=== PATIENT | female | born 1990 | race Caucasian/White ===

== ENCOUNTER 2016-12-25 23:32 | Emergency (ER) | payer MEDICAID, OTHER ==
[2016-12-25 23:32] VITALS: BMI 22.7
[2016-12-25 23:49] VITALS: BP 104/72; PULSE 60; RESP 20; TEMP 97.8; O2SAT 100
--- NOTE | 2016-12-26 00:24 | C.PDOC ---
History Of Present Illness 26 y/o female presents to ED with complaints of fever, cough sore throat. Patient denies N/V/D, shortness of breath, headache or any other complaints. Time Seen by Provider: 12/25/16 23:51 Chief Complaint (Nursing): ENT Problem History Per: Patient History/Exam Limitations: no limitations Onset/Duration Of Symptoms: Days Current Symptoms Are (Timing): Still Present Location Of Pain: None Associated Symptoms: Fever, Sore Throat, Cough. denies: Chills, Neck Pain, Nausea, Vomiting, Diarrhea Severity: Mild Recent travel outside of the [place]: No Additional History Per: Patient Past Medical History Reviewed: Historical Data, Nursing Documentation, Vital Signs Vital Signs: Last Vital Signs Temp 97.8 F 12/25/16 23:46 Pulse 60 12/25/16 23:46 Resp 20 12/26/16 00:28 BP 104/72 12/25/16 23:46 Pulse Ox 100 12/26/16 05:39 - [facility] Procedures INJECT/INFUSE ELECTROLYT (06/12/13) Family History: States: Unknown Family Hx - Social History Hx Tobacco Use: No Hx Alcohol Use: No Hx Substance Use: No - Immunization History Hx Tetanus Toxoid Vaccination: No Hx Influenza Vaccination: No Hx Pneumococcal Vaccination: No Review Of Systems Except As Marked, All Systems Reviewed And Found Negative. Constitutional: Positive for: Fever. Negative for: Chills ENT: Negative for: Nose Congestion Respiratory: Positive for: Cough. Negative for: Shortness of Breath Gastrointestinal: Negative for: Nausea, Vomiting, Diarrhea Genitourinary: Negative for: Dysuria Physical Exam - Physical Exam Appears: Non-toxic, No Acute Distress Skin: Normal Color, Warm, No Rash Head: Atraumatic, Normacephalic Eye(s): bilateral: Normal Inspection, PERRL, EOMI Ear(s): Bilateral: Normal Nose: Normal Oral Mucosa: Moist Throat: Normal, No Erythema, No Exudate Neck: Normal ROM, Supple Chest: Symmetrical, No Tenderness Cardiovascular: Rhythm Regular, No Friction Rub, No Murmur Respiratory: Normal Breath Sounds, No Rales, No Rhonchi, No Wheezing Gastrointestinal/Abdominal: Normal Exam, No Tenderness, No Guarding, No Rebound Extremity: Normal ROM Neurological/Psych: Oriented x3, Normal Speech, Normal Cognition, Normal Motor, Normal Sensation Gait: Steady ED Course And Treatment O2 Sat by Pulse Oximetry: 100 (RA) Pulse Ox Interpretation: Normal Medical Decision Making Medical Decision Making: Impression: 26 y/o female with fever, cough and sore throat. Patient denies N/V/ D, SOB, headache. Physical exam was normal no rhales, rhonci, wheezing in lungs , no erythema in throat. Plan: Tessalon, Motrin & Prednisone Progress: Patient was given Tessalon, Motrin and Prednisone and feels comfortable to return home. Patient will be discharged and instructed for follow up with PMD in 1-2 days. Disposition - Disposition Referrals: Kacie Rodas MD [Staff Provider] - Disposition: HOME/ ROUTINE Disposition Time: 00:22 Condition: GOOD Additional Instructions: Follow up with the medical doctor within 1-2 days without fail. Return if worsened. s Prescriptions: Ibuprofen [Motrin] 600 mg PO TID #21 tab Benzonatate [Tessalon Perles] 200 mg PO TID PRN #21 sgl PRN Reason: Cough predniSONE [Prednisone] 20 mg PO BID #10 tab Instructions: Upper Respiratory Infection (ED) - Clinical Impression Clinical Impression: Upper respiratory infection - PA / CAN STACKER / Resident Statement MD/DO has examined the patient and agrees with the treatment plan. - Scribe Statement Rico Stovall All medical record entries made by the Scribe were at my direction and personally dictated by me. I have reviewed the chart and agree that the record accurately reflects my personal performance of the history, physical exam, medical decision making, and the department course for this patient. I have also personally directed, reviewed, and agree with the discharge instructions and disposition.
== END 2016-12-26 00:28 | disposition home or self-care (01) ==
LOC: C.ER 23:32
DX: J06.9 Acute upper respiratory infection, unspecified (principal)

== ENCOUNTER 2017-01-24 22:22 | Emergency (ER) | payer MEDICAID, OTHER ==
[2017-01-24 22:22] VITALS: BMI 22.7
[2017-01-24 22:32] VITALS: RESP 18
[2017-01-24 22:53] LABS: RBC URINE 1 /hpf (0-3); URINE BACTERIA OCC (<OCC); URINE BILIRUBIN NEGATIVE (NEGATIVE); URINE BLOOD NEGATIVE (NEGATIVE); URINE COLOR Straw (YELLOW); URINE GLUCOSE (UA) NORMAL (Normal); URINE KETONE NEGATIVE (NEGATIVE); URINE LEUKOCYTE ESTERASE TRACE Leu/uL (Negative); URINE PROTEIN NEGATIVE (NEGATIVE); URINE UROBILINOGEN NORMAL mg/dL (0.2-1.0); WBC URINE 4 /hpf (0-5)
--- NOTE | 2017-01-24 23:34 | C.PDOC ---
History Of Present Illness 26 Y/O FEMALE C/O PERSISTENT BILATERAL LOWER QUADRANT ABDOMINAL PAIN FOR 2 WEEKS. SEEN BY PMD FOR SAME, F/U TOMORROW FOR BLOOD TEST RESULTS. PT NOTES LMP WAS 12/24/16. DENIES FEVER, CHILLS, NAUSEA, VOMITING, DIARRHEA, URINARY SX, VAGINAL BLEEDING. Time Seen by Provider: 01/24/17 23:19 Chief Complaint (Nursing): Abdominal Pain History Per: Patient History/Exam Limitations: no limitations Onset/Duration Of Symptoms: Days, Persistent Current Symptoms Are (Timing): Still Present Location Of Pain/Discomfort: RLQ, LLQ Radiation Of Pain To:: None Quality Of Discomfort: "Pain" Associated Symptoms: denies: Fever, Chills, Nausea, Vomiting, Diarrhea, Constipation, Urinary Symptoms Recent travel outside of the [place]: No Abnormal Vaginal Bleeding: No Past Medical History Reviewed: Historical Data, Nursing Documentation, Vital Signs Vital Signs: Last Vital Signs Temp 98 F 01/24/17 22:27 Pulse 76 01/24/17 22:27 Resp 18 01/24/17 22:27 BP 115/80 01/24/17 22:27 Pulse Ox 100 01/24/17 23:55 - Medical History PMH: No Chronic Diseases - [employer] Procedures INJECT/INFUSE ELECTROLYT (06/12/13) Family History: States: Unknown Family Hx - Social History Hx Tobacco Use: No Hx Alcohol Use: No Hx Substance Use: No - Immunization History Hx Tetanus Toxoid Vaccination: No Hx Influenza Vaccination: No Hx Pneumococcal Vaccination: No Review Of Systems Except As Marked, All Systems Reviewed And Found Negative. Constitutional: Negative for: Fever, Chills Respiratory: Negative for: Cough, Shortness of Breath Gastrointestinal: Positive for: Abdominal Pain. Negative for: Nausea, Vomiting , Diarrhea Genitourinary: Negative for: Vaginal Discharge, Vaginal Bleeding, Pelvic Pain Skin: Negative for: Rash Physical Exam - Physical Exam Appears: Non-toxic, No Acute Distress Skin: Warm, Dry Head: Atraumatic, Normacephalic Oral Mucosa: Moist Chest: Symmetrical Cardiovascular: Rhythm Regular Respiratory: Normal Breath Sounds, No Rales, No Rhonchi, No Wheezing Gastrointestinal/Abdominal: Soft, Tenderness (MILD, LLQ ), No Distention, No Guarding, No Rebound Back: Normal Inspection, No CVA Tenderness Extremity: Normal ROM, Capillary Refill (< 2 SEC. ) Neurological/Psych: Oriented x3, Normal Speech, Normal Cognition ED Course And Treatment O2 Sat by Pulse Oximetry: 100 (RA) Pulse Ox Interpretation: Normal - Other Rad ABDOMEN FLAT PLATE X-Ray: Viewed By Me, Read By Radiologist Interpretation: NEGATIVE FOR ACUTE ABNORMALITY Disposition Counseled Patient/Family Regarding: Studies Performed, Diagnosis, Need For Followup - Disposition Referrals: YOUR,PMD [Other] Disposition: HOME/ ROUTINE Disposition Time: 23:53 Condition: GOOD Additional Instructions: SEE YOUR PMD SCHEDULED Instructions: Abdominal Pain (ED), Amenorrhea (GEN) - Clinical Impression Clinical Impression: Abdominal pain, Menstrual cycle problem - Scribe Statement The provider has reviewed the documentation as recorded by the Priscillaibangelia Bennett Provider Scribe Attestation: All medical record entries made by the Scribe were at my direction and personally dictated by me. I have reviewed the chart and agree that the record accurately reflects my personal performance of the history, physical exam, medical decision making, and the department course for this patient. I have also personally directed, reviewed, and agree with the discharge instructions and disposition.
[2017-01-25 00:01] VITALS: BP 103/70; PULSE 73; TEMP 97.7; O2SAT 98
--- NOTE | 2017-01-25 08:44 | RAD ---
HISTORY: llq pain COMPARISON: No prior. FINDINGS: BOWEL: Normal. No obstruction. No free air. BONES: Normal. OTHER FINDINGS: None. IMPRESSION: No active disease.
== END 2017-01-25 00:01 | disposition home or self-care (01) ==
LOC: C.ER 22:22
DX: R10.32 Left lower quadrant pain (principal); N92.6 Irregular menstruation, unspecified

== ENCOUNTER 2017-08-29 23:17 | Emergency (ER) | payer MEDICAID, OTHER ==
[2017-08-29 23:17] VITALS: BMI 22.7
[2017-08-29 23:29] VITALS: RESP 20; O2SAT 100
[2017-08-29] MEDS ORDERED: Lactated Ringer's 1,000 ML IV ONE (23:50)
--- NOTE | 2017-08-29 23:50 | C.PDOC ---
History Of Present Illness Pt presents with worsening suprapubic discomfort over the last 6 days. No f/c/n/ v or dysuria. LMP was aug 02. tolerating po Time Seen by Provider: 08/29/17 23:49 Chief Complaint (Nursing): Abdominal Pain History Per: Patient History/Exam Limitations: no limitations Onset/Duration Of Symptoms: Days (6) Current Symptoms Are (Timing): Still Present Context: Other Severity: Moderate Pain Scale Rating Of: 4 Location Of Pain/Discomfort: Suprapubic Radiation Of Pain To:: None Quality Of Discomfort: Dull, Cramping Associated Symptoms: denies: Fever, Chills, Nausea, Vomiting Exacerbating Factors: denies: Cough Alleviating Factors: None Last Bowel Movement: Today Recent travel outside of the [place]: No Additional History Per: Patient Past Medical History Reviewed: Historical Data, Nursing Documentation, Vital Signs Vital Signs: Last Vital Signs Temp 98.7 F 08/30/17 02:19 Pulse 80 08/30/17 02:19 Resp 20 08/30/17 02:19 BP 103/70 08/30/17 02:19 Pulse Ox 100 08/30/17 02:19 - Medical History PMH: Denies: Depression - [employer] Procedures INJECT/INFUSE ELECTROLYT (06/12/13) Family History: States: No Known Family Hx - Social History Hx Tobacco Use: No Hx Alcohol Use: No Hx Substance Use: No - Immunization History Hx Tetanus Toxoid Vaccination: No Hx Influenza Vaccination: No Hx Pneumococcal Vaccination: No Review Of Systems Constitutional: Negative for: Fever, Chills ENT: Negative for: Throat Pain Cardiovascular: Negative for: Chest Pain Respiratory: Negative for: Shortness of Breath Gastrointestinal: Positive for: Abdominal Pain (suprapubic). Negative for: Nausea, Vomiting Genitourinary: Negative for: Dysuria, Incontinence Musculoskeletal: Negative for: Back Pain Skin: Negative for: Rash Neurological: Negative for: Weakness Psych: Negative for: Anxiety Physical Exam - Physical Exam Appears: Non-toxic, No Acute Distress Skin: Warm, Dry Head: Normacephalic Eye(s): bilateral: Normal Inspection Oral Mucosa: Moist Neck: Supple Chest: Symmetrical Cardiovascular: Rhythm Regular Respiratory: No Rales, No Rhonchi, No Wheezing Gastrointestinal/Abdominal: Soft, Tenderness (suprapubic), No Distention, No Guarding, No Rebound Back: No CVA Tenderness Extremity: Normal ROM Extremity: Bilateral: Atraumatic Pulses: Left Dorsalis Pedis: Normal, Right Dorsalis Pedis: Normal Neurological/Psych: Oriented x3, Normal Speech, Normal Cognition Gait: Steady ED Course And Treatment - Laboratory Results Result Diagrams: 08/30/17 00:02 08/30/17 00:02 O2 Sat by Pulse Oximetry: 100 Pulse Ox Interpretation: Normal Reevaluation Time: 03:42 Reassessment Condition: Improved Disposition Counseled Patient/Family Regarding: Studies Performed, Diagnosis, Need For Followup - Disposition Referrals: Kacie Rodas MD [Staff Provider] - Disposition: HOME/ ROUTINE Disposition Time: 23:50 Condition: FAIR Additional Instructions: Please follow up with your cuff setter overlock doctor Instructions: (ED), Abdominal Pain in (ED) Forms: [facility] (Ukrainian) - Clinical Impression Clinical Impression:
[2017-08-30] MEDS ORDERED: Lactated Ringer's 1,000 ML ONE
[2017-08-30 00:14] LABS: BASO % 0.7 % (0.0-2.0); EOS # 0.1 K/uL (0.0-0.7); HEMATOCRIT 33.8 % (34.0-47.0); LYMPH # 1.5 K/uL (1.0-4.3); LYMPH % 41.5 % (20.0-40.0); MEAN CELL VOLUME 88.2 fL (81.0-99.0); MEAN CORPUSCULAR HEMOGLOBIN 30.2 pg (27.0-31.0); MEAN CORPUSCULAR HGB CONC 34.3 g/dL (33.0-37.0); MEAN PLATELET VOLUME 10.1 fL (7.2-11.7); MONO # 0.4 K/uL (0.0-0.8); MONO % 11.9 % (0.0-10.0); RED CELL DISTRIBUTION WIDTH 13.8 % (11.5-14.5); WHITE BLOOD COUNT 3.7 K/uL (4.8-10.8)
[2017-08-30 00:25] LABS: ALB/GLOB RATIO 1.3 (1.0-2.1); ALKALINE PHOSPHATASE 38 U/L (38-126); ALT/SGPT 36 U/L (9-52); AST/SGOT 19 U/L (14-36); BILIRUBIN,TOTAL 0.5 mg/dL (0.2-1.3); BLOOD UREA NITROGEN 13 mg/dL (7-17); CALCIUM 7.8 mg/dl (8.6-10.4); CARBON DIOXIDE 27 mmol/L (22-30); CHLORIDE 101 mmol/L (98-107); GFR AFRICAN-AMERICAN > 60; GLUCOSE,RANDOM 91 mg/dL (65-105); POTASSIUM 3.7 mmol/L (3.6-5.2); SODIUM 134 mmol/L (132-148); TOTAL PROTEIN 6.8 g/dL (6.3-8.3)
[2017-08-30 00:27] LABS: URINE BACTERIA RARE (<OCC); URINE BILIRUBIN NEGATIVE (NEGATIVE); URINE BLOOD NEGATIVE (NEGATIVE); URINE COLOR Straw (YELLOW); URINE GLUCOSE (UA) NORMAL (Normal); URINE KETONE NEGATIVE (NEGATIVE); URINE LEUKOCYTE ESTERASE 2+ Leu/uL (Negative); URINE PROTEIN NEGATIVE (NEGATIVE); URINE UROBILINOGEN NORMAL mg/dL (0.2-1.0); WBC URINE 2 /hpf (0-5)
[2017-08-30 02:21] VITALS: BP 103/70; PULSE 80; TEMP 98.7
== END 2017-08-30 03:55 | disposition home or self-care (01) ==
LOC: C.ER 23:17
DX: O26.891 Other specified pregnancy related conditions, first trimester (principal); Z3A.00 Weeks of gestation of pregnancy not specified
CPT/HCPCS: 80053; 81001; 83690; 84702; 84703; 85025; 96361; 96374; 99283; J7120

== ENCOUNTER 2017-10-26 22:49 | Emergency (ER) | payer OTHER ==
[2017-10-26 22:49] VITALS: BMI 22.7
--- NOTE | 2017-10-26 23:45 | C.PDOC ---
Time Seen by Provider: 10/26/17 22:57 Chief Complaint (Nursing): Flu-like Symptoms Past Medical History Vital Signs: Last Vital Signs Temp 98.8 F 10/26/17 22:57 Pulse 76 10/26/17 22:57 Resp 20 10/26/17 22:57 BP 120/81 10/26/17 22:57 Pulse Ox 98 10/26/17 22:57 - Medical History PMH: Denies: Depression - [facility] Procedures INJECT/INFUSE ELECTROLYT (06/12/13) Family History: States: Unknown Family Hx - Social History Hx Tobacco Use: No Hx Alcohol Use: No Hx Substance Use: No - Immunization History Hx Tetanus Toxoid Vaccination: No Hx Influenza Vaccination: No Hx Pneumococcal Vaccination: No ED Course And Treatment O2 Sat by Pulse Oximetry: 98 Disposition - Disposition
--- NOTE | 2017-10-26 23:55 | C.PDOC ---
History Of Present Illness 27 year old female presents to the ED for evaluation of generalized body aches, sore throat, and dry cough which began yesterday. Patient has had contact with her son, who presens to the ED with similar complaints. Otherwise, patient denies headache, dizziness, chest pain, shortness of breath, drooling, lethargy , abdominal pain, nausea, vomiting, diarrhea. Ambulate to ED for evaluation, not in any apparent distress. Time Seen by Provider: 10/26/17 22:57 Chief Complaint (Nursing): Flu-like Symptoms History Per: Patient History/Exam Limitations: no limitations Onset/Duration Of Symptoms: Hrs Current Symptoms Are (Timing): Still Present Location Of Pain: Diffuse Myalgias Sick Contacts (Context): Family Member(s) (son ) Associated Symptoms: Sore Throat, Cough. denies: Sputum, Nausea, Vomiting, Diarrhea Additional History Per: Patient Past Medical History Reviewed: Historical Data, Nursing Documentation, Vital Signs Vital Signs: Last Vital Signs Temp 97.7 F 10/27/17 00:19 Pulse 68 10/27/17 00:19 Resp 17 10/27/17 00:19 BP 114/77 10/27/17 00:19 Pulse Ox 98 10/27/17 00:29 - Medical History PMH: Denies: Depression Surgical History: No Surg Hx - [facility] Procedures INJECT/INFUSE ELECTROLYT (06/12/13) Family History: States: Unknown Family Hx - Social History Hx Tobacco Use: No Hx Alcohol Use: No Hx Substance Use: No - Immunization History Hx Tetanus Toxoid Vaccination: No Hx Influenza Vaccination: No Hx Pneumococcal Vaccination: No Review Of Systems ENT: Positive for: Throat Pain. Negative for: Ear Pain, Ear Discharge, Nose Discharge, Nose Congestion Cardiovascular: Negative for: Chest Pain Respiratory: Positive for: Cough. Negative for: Shortness of Breath, Sputum Gastrointestinal: Negative for: Nausea, Vomiting, Abdominal Pain, Diarrhea Musculoskeletal: Positive for: Other (generalized body aches ) Skin: Negative for: Rash Neurological: Negative for: Altered Mental Status, Headache, Dizziness Physical Exam - Physical Exam Appears: Well, Non-toxic, No Acute Distress Skin: Normal Color, Warm, Dry, No Rash Head: Normacephalic Eye(s): bilateral: PERRL Ear(s): Bilateral: Normal Nose: No Flaring, Discharge (SCANT CLEAR B/L) Oral Mucosa: Moist, No Drooling Tongue: Normal Appearing Lips: Normal Appearing Throat: No Erythema, No Drooling Neck: Trachea Midline, Supple, Other ((-) meningeal sign) Cardiovascular: Rhythm Regular, No Murmur Respiratory: No Decreased Breath Sounds, No Accessory Muscle Use, No Stridor, No Wheezing Gastrointestinal/Abdominal: No Soft, No Tenderness, No Distention, No Guarding Back: No CVA Tenderness Extremity: Normal ROM, No Deformity, No Swelling Neurological/Psych: Oriented x3, Normal Speech ED Course And Treatment O2 Sat by Pulse Oximetry: 98 (on RA ) Pulse Ox Interpretation: Normal Progress Note: Tylenol PO and Tamiflu PO administered. On re-evaluation, pt is afebrile, hemodynamicaly stable. Non-toxic. Tolerate Po well in ED. PulsEOx 98 % RA. ENT: brigid cute findings. neck: supple, (-) meningeal sign. Lungs: CTA B/ L, BS equal B/L. Abd: benign, (-) guarding, (-) rebound. Neurologicaly intact. Pt has clinical findings c/w Influenza-like illness. Pt advised. ref. to f/u with PMD In 2-3 days for re-eavl. return to ED if any worsening or new changes. Disposition Counseled Patient/Family Regarding: Diagnosis, Need For Followup, Rx Given - Disposition Referrals: Kacie Rodas MD [Staff Provider] - Disposition: HOME/ ROUTINE Disposition Time: 00:14 Condition: STABLE Additional Instructions: ENCOURAGE FLUIDS TAKE MEDICATION PRESCRIBED FOLLOW UP WITH PMD IN 2-3 DAYS FOR RE-EVALUATION. RETURN TO ED IF ANY WORSENING OR NEW CHANGES. Prescriptions: Oseltamivir Phosphate [Tamiflu] 75 mg PO BID #10 capsule Instructions: Influenza (ED) Forms: [email or web address] ([place] Citizen) - Clinical Impression Clinical Impression: Influenza-like illness - PA / INTERIOR SPECIALIST / Resident Statement MD/DO has reviewed & agrees with the documentation as recorded. - Scribe Statement The provider has reviewed the documentation as recorded by the Scribe (Emely Christian) All medical record entries made by the Scribe were at my direction and personally dictated by me. I have reviewed the chart and agree that the record accurately reflects my personal performance of the history, physical exam, medical decision making, and the department course for this patient. I have also personally directed, reviewed, and agree with the discharge instructions and disposition.
[2017-10-27 00:20] VITALS: BP 114/77; PULSE 68; RESP 17; TEMP 97.7
[2017-10-27 00:23] VITALS: O2SAT 98
== END 2017-10-27 00:44 | disposition home or self-care (01) ==
LOC: C.ER 22:49
DX: J11.1 Influenza due to unidentified influenza virus with other respiratory manifestations (principal)

== ENCOUNTER 2017-10-31 23:14 | Emergency (ER) | payer OTHER ==
[2017-10-31 23:14] VITALS: BMI 22.7
[2017-10-31 23:32] VITALS: RESP 20
--- NOTE | 2017-11-01 00:56 | C.PDOC ---
Time Seen by Provider: 11/01/17 00:14 Chief Complaint (Nursing): Cough, Cold, Congestion History Per: Patient, Family Onset/Duration Of Symptoms: Days (about 1 week) Current Symptoms Are (Timing): Still Present Associated Symptoms: Sore Throat, Cough, Nasal Congestion Severity: Moderate Additional History Per: Prior Records Past Medical History Reviewed: Historical Data, Nursing Documentation, Vital Signs Vital Signs: Last Vital Signs Temp 98.1 F 10/31/17 23:28 Pulse 81 10/31/17 23:28 Resp 20 10/31/17 23:28 BP 106/75 10/31/17 23:28 Pulse Ox 100 10/31/17 23:28 - Medical History PMH: No Chronic Diseases - [employer] Procedures INJECT/INFUSE ELECTROLYT (06/12/13) Family History: States: Unknown Family Hx - Social History Hx Tobacco Use: No Hx Alcohol Use: No Hx Substance Use: No - Immunization History Hx Tetanus Toxoid Vaccination: No Hx Influenza Vaccination: No Hx Pneumococcal Vaccination: No Review Of Systems Except As Marked, All Systems Reviewed And Found Negative. Constitutional: Negative for: Fever Cardiovascular: Positive for: Chest Pain (when coughing) Respiratory: Positive for: Cough. Negative for: Shortness of Breath, Hemoptysis Gastrointestinal: Negative for: Vomiting, Abdominal Pain Musculoskeletal: Negative for: Neck Pain, Leg Pain Skin: Negative for: Rash Neurological: Negative for: Weakness, Numbness Physical Exam - Physical Exam Appears: Non-toxic, No Acute Distress Skin: Normal Color, Warm, Dry, No Rash Head: Atraumatic, Normacephalic Eye(s): bilateral: PERRL, EOMI Ear(s): Bilateral: Normal Oral Mucosa: Moist, No Drooling, No Trismus Throat: Erythema, No Exudate, No Drooling, No Mass Neck: Normal ROM, Supple Chest: Symmetrical Cardiovascular: Rhythm Regular Respiratory: Normal Breath Sounds, No Accessory Muscle Use Gastrointestinal/Abdominal: Soft, No Tenderness Back: No CVA Tenderness Extremity: Normal ROM, No Pedal Edema, No Calf Tenderness Neurological/Psych: Oriented x3, Normal Speech, Normal Motor, Normal Sensation ED Course And Treatment O2 Sat by Pulse Oximetry: 100 Pulse Ox Interpretation: Normal - Radiology CXR: Interpreted by Me, Viewed By Me CXR Interpretation: Yes: No Acute Disease, Heart Size (WNL) Reassessment Condition: Improved Medical Decision Making Medical Decision Making: PERC rule negative Disposition Counseled Patient/Family Regarding: Studies Performed, Diagnosis, Need For Followup, Rx Given - Disposition Referrals: Kacie Rodas MD [Staff Provider] - Disposition: HOME/ ROUTINE Disposition Time: 00:56 Condition: STABLE Additional Instructions: Drink plenty of fluids. Follow up with your doctor within 2 days. Return to the ER if you develop shortness of breath, worsening of symptoms or if you have any other concerns. Prescriptions: Ibuprofen [Motrin Tab] 600 mg PO Q8 PRN #30 tab PRN Reason: Pain, Moderate (4-7) Instructions: Upper Respiratory Infection (ED) Forms: [facility] (Czech), General Discharge Instructions - Clinical Impression Clinical Impression: Upper respiratory infection
[2017-11-01 01:04] VITALS: BP 112/73; PULSE 83; TEMP 97.8; O2SAT 99
--- NOTE | 2017-11-01 09:00 | RAD ---
HISTORY: Cough, pain COMPARISON: No prior. TECHNIQUE: Chest PA and lateral FINDINGS: LUNGS: No active pulmonary disease. PLEURA: No significant pleural effusion identified. No pneumothorax apparent. CARDIOVASCULAR: Normal. OSSEOUS STRUCTURES: No significant abnormalities. VISUALIZED UPPER ABDOMEN: Normal. OTHER FINDINGS: None. IMPRESSION: No active disease.
== END 2017-11-01 01:04 | disposition home or self-care (01) ==
LOC: C.ER 23:14
DX: J06.9 Acute upper respiratory infection, unspecified (principal)

== ENCOUNTER 2017-12-04 18:27 | Emergency (ER) | payer OTHER ==
[2017-12-04 18:28] VITALS: BMI 22.7
[2017-12-04 18:40] VITALS: BP 120/82; PULSE 77; TEMP 97.7; O2SAT 100
--- NOTE | 2017-12-04 19:51 | C.PDOC ---
History Of Present Illness 27 year old female presents to the emergency department with complaints of a cough, runny nose, sore throat, and body aches lasting for the past two days. Patient denies vomiting, diarrhea, chest pain, shortness of breath, back pain, and recent traveling. Time Seen by Provider: 12/04/17 19:12 Chief Complaint (Nursing): Flu-like Symptoms History Per: Patient History/Exam Limitations: no limitations Onset/Duration Of Symptoms: Days (2) Location Of Pain: Throat, Other (body aches) Associated Symptoms: Sore Throat, Cough, Other (body ache) Recent travel outside of the [place]: No Past Medical History Reviewed: Historical Data, Nursing Documentation, Vital Signs Vital Signs: Last Vital Signs Temp 97.7 F 12/04/17 18:38 Pulse 77 12/04/17 18:38 Resp 20 12/04/17 20:18 BP 120/82 12/04/17 18:38 Pulse Ox 100 12/04/17 19:53 - Medical History PMH: No Chronic Diseases Denies: Depression Surgical History: No Surg Hx - [facility] Procedures INJECT/INFUSE ELECTROLYT (06/12/13) Family History: States: No Known Family Hx - Social History Hx Tobacco Use: No Hx Alcohol Use: No Hx Substance Use: No - Immunization History Hx Tetanus Toxoid Vaccination: No Hx Influenza Vaccination: No Hx Pneumococcal Vaccination: No Review Of Systems Except As Marked, All Systems Reviewed And Found Negative. Constitutional: Positive for: Other (body aches) ENT: Positive for: Nose Discharge (rhinorrhea), Throat Pain (sore throat) Cardiovascular: Negative for: Chest Pain Respiratory: Positive for: Cough. Negative for: Shortness of Breath Gastrointestinal: Negative for: Vomiting, Diarrhea Musculoskeletal: Negative for: Back Pain, Other (chest pain) Physical Exam - Physical Exam Appears: Well, Non-toxic Skin: Normal Color Head: Atraumatic, Normacephalic Eye(s): bilateral: Normal Inspection Ear(s): Bilateral: Normal Nose: Normal Oral Mucosa: Moist Tongue: Normal Appearing Throat: Normal Neck: Normal, Supple Cardiovascular: Rhythm Regular Respiratory: Normal Breath Sounds Gastrointestinal/Abdominal: Normal Exam Neurological/Psych: Oriented x3, Normal Speech, Normal Cognition ED Course And Treatment O2 Sat by Pulse Oximetry: 100 (RA) Pulse Ox Interpretation: Normal Progress Note: Patient administered Claritin 10mg PO and Tylenol 650mg PO in the emergency department. Patient is clear for discharge home. Disposition - Disposition Referrals: Kacie Rodas MD [Staff Provider] - Disposition: HOME/ ROUTINE Disposition Time: 19:50 Condition: GOOD Additional Instructions: Follow up with the medical doctor/clinic within 1-2 days. Return if worsened. Prescriptions: Acetaminophen [Tylenol] 325 mg PO Q6 PRN #30 tab PRN Reason: Pain, Mild (1-3) Ibuprofen [Motrin] 600 mg PO TID #21 tab Loratadine [Claritin] 10 mg PO DAILY #10 tab Instructions: Viral Upper Respiratory Infection, Adult (DC) Forms: [employer] (Upper Sorbian) - Clinical Impression Clinical Impression: Upper respiratory infection - PA / CABLE TECHNICIAN / Resident Statement MD/DO has reviewed & agrees with the documentation as recorded. - Scribe Statement The provider has reviewed the documentation as recorded by the Scribe (Yohan Medina) All medical record entries made by the Scribe were at my direction and personally dictated by me. I have reviewed the chart and agree that the record accurately reflects my personal performance of the history, physical exam, medical decision making, and the department course for this patient. I have also personally directed, reviewed, and agree with the discharge instructions and disposition.
[2017-12-04 20:19] VITALS: RESP 20
== END 2017-12-04 20:18 | disposition home or self-care (01) ==
LOC: C.ER 18:27
DX: J06.9 Acute upper respiratory infection, unspecified (principal)

== ENCOUNTER 2017-12-28 18:06 | Emergency (ER) | payer OTHER ==
[2017-12-28 18:06] VITALS: BMI 22.7
[2017-12-28] MEDS ORDERED: Tetanus/Diphtheria Toxoids 0.5 ml Syringe IM ONE ×2 (19:09→19:29)
--- NOTE | 2017-12-28 20:11 | C.PDOC ---
History Of Present Illness 27 year old female presents to the ED c/o sore throat and bilateral ear pain for the past 3 days. Patient is also c/o bilateral hand pain after tripping falling and landing on her hands. Patient denies fever, chills, nausea, vomit, diarrhea, weakness, numbness. Time Seen by Provider: 12/28/17 19:05 Chief Complaint (Nursing): ENT Problem History Per: Patient History/Exam Limitations: no limitations Onset/Duration Of Symptoms: Days Current Symptoms Are (Timing): Still Present Quality: "Pain" Recent travel outside of the [place]: No Additional History Per: Patient Past Medical History Reviewed: Historical Data, Nursing Documentation, Vital Signs Vital Signs: Last Vital Signs Temp 98.1 F 12/28/17 20:53 Pulse 78 12/28/17 20:53 Resp 16 12/28/17 20:53 BP 107/74 12/28/17 20:53 Pulse Ox 98 12/28/17 20:53 - Medical History PMH: No Chronic Diseases Denies: Depression Surgical History: No Surg Hx - [facility] Procedures INJECT/INFUSE ELECTROLYT (06/12/13) Family History: States: Unknown Family Hx - Social History Hx Tobacco Use: No Hx Alcohol Use: No Hx Substance Use: No - Immunization History Hx Tetanus Toxoid Vaccination: No Hx Influenza Vaccination: No Hx Pneumococcal Vaccination: No Review Of Systems Constitutional: Negative for: Fever, Chills ENT: Positive for: Ear Pain, Throat Pain. Negative for: Nose Congestion Cardiovascular: Negative for: Palpitations Respiratory: Negative for: Cough, Shortness of Breath Gastrointestinal: Negative for: Abdominal Pain Musculoskeletal: Positive for: Hand Pain Skin: Negative for: Rash Physical Exam - Physical Exam Appears: Non-toxic, No Acute Distress Skin: Normal Color, Warm, Dry Head: Atraumatic, Normacephalic Eye(s): bilateral: Normal Inspection Ear(s): Bilateral: Normal Nose: No Discharge Oral Mucosa: Moist Throat: Erythema (mild), No Exudate Neck: Normal ROM, Supple Lymphatic: Adenopathy (right side submandibular. Tender and enlarged) Extremity: Normal ROM, Capillary Refill (< 2 seconds), No Swelling, Other (B/L dorsal aspect of hand abrasions, no bleeding) Pulses: Left Radial: Normal, Right Radial: Normal Neurological/Psych: Oriented x3, Normal Motor, Normal Sensation Gait: Steady ED Course And Treatment O2 Sat by Pulse Oximetry: 100 (On RA) Pulse Ox Interpretation: Normal - Other Rad Hand xray b/l X-Ray: Interpreted by Me Interpretation: No fractures, no dislocations Medical Decision Making Medical Decision Making: Impression: sore throat, hand pain Plan: * B/L hands X-Ray * Amoxicillin 500 mg PO * Tetanus Disposition - Disposition Disposition: HOME/ ROUTINE Disposition Time: 20:32 Condition: STABLE Additional Instructions: Follow up with PMD within 1-2 days. Return to ED if feel worse. Prescriptions: Amoxicillin 500 mg PO Q8 #30 tab Ibuprofen [Motrin Tab] 600 mg PO Q8 #30 tab Instructions: Sore Throat in Adults, Skin Abrasions (DC) Forms: [employer] (Luxembourgish) - Clinical Impression Clinical Impression: Abrasion hand, Pharyngitis - PA / BIT SANDER / Resident Statement MD/DO has reviewed & agrees with the documentation as recorded. - Scribe Statement The provider has reviewed the documentation as recorded by the Scribe Alberto Cruz All medical record entries made by the Scribe were at my direction and personally dictated by me. I have reviewed the chart and agree that the record accurately reflects my personal performance of the history, physical exam, medical decision making, and the department course for this patient. I have also personally directed, reviewed, and agree with the discharge instructions and disposition.
[2017-12-28 20:55] VITALS: BP 107/74; PULSE 78; RESP 16; TEMP 98.1
[2017-12-28 21:17] VITALS: O2SAT 100
--- NOTE | 2017-12-29 08:15 | RAD ---
PROCEDURE: Bilateral hand radiographs. HISTORY: fall COMPARISON: None. FINDINGS: BONES: Right Hand: No acute fracture. Left Hand: No acute fracture. JOINTS: Right Hand: Unremarkable. Left Hand: Unremarkable. SOFT TISSUES: Right Hand: Normal. Left Hand: Normal. OTHER FINDINGS: None. IMPRESSION: No demonstrated fracture or dislocation.
== END 2017-12-28 20:55 | disposition home or self-care (01) ==
LOC: C.ER 18:06
DX: J02.9 Acute pharyngitis, unspecified (principal); S60.512A Abrasion of left hand, initial encounter; S60.511A Abrasion of right hand, initial encounter; W01.0XXA Fall on same level from slipping, tripping and stumbling without subsequent striking against object, initial encounter; Y92.9 Unspecified place or not applicable; Z23 Encounter for immunization

== ENCOUNTER 2018-07-24 22:52 | Emergency (ER) | payer OTHER ==
[2018-07-24 22:53] VITALS: BMI 22.7
[2018-07-24 23:19] VITALS: O2SAT 99
--- NOTE | 2018-07-25 00:46 | C.PDOC ---
History Of Present Illness 27 year old female presents to the ED complaining of sore throat and rhinorrhea for 2 days. Reports her "breath and eyes feel hot". Denies any chills, ear pain, cough, n/v/d or any other associated symptoms. +subjective fever. Notes her child is also sick today. pt got flu vaccine 2 weeks ago. Time Seen by Provider: 07/24/18 23:29 Chief Complaint (Nursing): Cough, Cold, Congestion History Per: Patient History/Exam Limitations: no limitations Onset/Duration Of Symptoms: Days (2) Current Symptoms Are (Timing): Still Present Location Of Pain: Throat Associated Symptoms: Fever (subjective), Sore Throat, Sinus Drainage. denies: Chills, Cough, Nasal Congestion, Nausea, Vomiting, Diarrhea Ear Symptoms: Bilateral: None Recent travel outside of the [place]: No Past Medical History Reviewed: Historical Data, Nursing Documentation, Vital Signs Vital Signs: Last Vital Signs Temp 98.2 F 07/24/18 23:10 Pulse 78 07/24/18 23:10 Resp 20 07/24/18 23:10 BP 113/73 07/24/18 23:10 Pulse Ox 99 07/24/18 23:10 - Medical History PMH: No Chronic Diseases Denies: Depression Other Surgeries: Hx of surgery - [facility] Procedures INJECT/INFUSE ELECTROLYT (06/12/13) Family History: States: Unknown Family Hx - Social History Hx Tobacco Use: No Hx Alcohol Use: No Hx Substance Use: No - Immunization History Hx Tetanus Toxoid Vaccination: No Hx Influenza Vaccination: No Hx Pneumococcal Vaccination: No Review Of Systems Constitutional: Positive for: Fever (subjective), Malaise. Negative for: Chills ENT: Positive for: Nose Discharge, Throat Pain. Negative for: Ear Pain, Nose Congestion, Throat Swelling Cardiovascular: Negative for: Chest Pain Respiratory: Negative for: Cough, Shortness of Breath Gastrointestinal: Negative for: Nausea, Vomiting, Abdominal Pain, Diarrhea Genitourinary: Negative for: Dysuria Skin: Negative for: Rash Neurological: Negative for: Weakness, Numbness Physical Exam - Physical Exam Appears: Non-toxic, Other (well appearing, well nourished ) Skin: Warm, Dry, No Rash Head: Atraumatic, Normacephalic Eye(s): bilateral: Normal Inspection Ear(s): Bilateral: Normal Nose: Normal, No Discharge Oral Mucosa: Moist Tongue: Normal Appearing Lips: Normal Appearing Gingiva: Normal Appearing Throat: Erythema (mild), No Exudate Neck: Normal ROM, Supple Lymphatic: No Adenopathy Chest: Symmetrical, No Tenderness Cardiovascular: Rhythm Regular, No Murmur Respiratory: No Rales, No Rhonchi, No Wheezing Extremity: Normal ROM, No Tenderness, No Swelling Neurological/Psych: Oriented x3, Normal Speech, Normal Cognition Gait: Steady ED Course And Treatment O2 Sat by Pulse Oximetry: 99 (RA) Pulse Ox Interpretation: Normal Medical Decision Making Medical Decision Making: Plan - Rapid Strep Test pt with cold symptoms, rapid strep neg, had flu vax 2 weeks ago, d/c home with supportive care. Disposition Counseled Patient/Family Regarding: Studies Performed, Diagnosis, Need For Followup - Disposition Referrals: Kacie Rodas MD [Staff Provider] - Disposition: HOME/ ROUTINE Disposition Time: 00:45 Condition: GOOD Additional Instructions: Tylenol or Motrin for fever or pain. Gargle with warm salty water several times a day. Increased rest, drink increased fluids. Follow up with Dr Rodas in a few days. Instructions: Upper Respiratory Infection (ED) Forms: [facility] (Liberian), General Discharge Instructions - Clinical Impression Clinical Impression: Upper respiratory infection - PA / CORPORATE DIRECTOR / Resident Statement MD/DO has reviewed & agrees with the documentation as recorded. - Scribe Statement The provider has reviewed the documentation as recorded by the Scribe Reshma Ge All medical record entries made by the Scribe were at my direction and personally dictated by me. I have reviewed the chart and agree that the record accurately reflects my personal performance of the history, physical exam, medical decision making, and the department course for this patient. I have also personally directed, reviewed, and agree with the discharge instructions and disposition.
[2018-07-25 01:03] VITALS: BP 117/81; PULSE 75; RESP 16; TEMP 98.1
== END 2018-07-25 01:14 | disposition home or self-care (01) ==
LOC: C.ER 22:52
DX: J06.9 Acute upper respiratory infection, unspecified (principal)

== ENCOUNTER 2018-09-04 14:40 | Emergency (ER) | payer OTHER ==
[2018-09-04 14:40] VITALS: BMI 22.7
[2018-09-04 14:45] VITALS: RESP 20; O2SAT 100
[2018-09-04 16:37] VITALS: BP 107/72; PULSE 68; TEMP 98.5
--- NOTE | 2018-09-04 16:40 | C.PDOC ---
History Of Present Illness 28 year old female presents to the ED complaining of pain to left heel for 6 days. Denies any injuries or trauma. Reports it is very painful to put pressure and she has trouble walking. Denies any weakness or numbness. Denies taking any medications for the pain. Time Seen by Provider: 09/04/18 14:50 Chief Complaint (Nursing): Lower Extremity Problem/Injury History Per: Patient History/Exam Limitations: no limitations Onset/Duration Of Symptoms: Days (6) Current Symptoms Are (Timing): Still Present Past Medical History Reviewed: Historical Data, Nursing Documentation, Vital Signs Vital Signs: Last Vital Signs Temp 98.5 F 09/04/18 16:36 Pulse 68 09/04/18 16:36 Resp 20 09/04/18 16:36 BP 107/72 09/04/18 16:36 Pulse Ox 100 09/04/18 16:36 - Medical History PMH: Anxiety Denies: Depression Other Surgeries: Hx of surgeries - [facility] Procedures INJECT/INFUSE ELECTROLYT (06/12/13) Family History: States: No Known Family Hx - Social History Hx Tobacco Use: No Hx Alcohol Use: No Hx Substance Use: No - Immunization History Hx Tetanus Toxoid Vaccination: No Hx Influenza Vaccination: Yes (06/2018) Hx Pneumococcal Vaccination: No Review Of Systems Except As Marked, All Systems Reviewed And Found Negative. Musculoskeletal: Positive for: Foot Pain (left heel pain ) Neurological: Negative for: Weakness, Numbness Physical Exam - Physical Exam Appears: Non-toxic, No Acute Distress Skin: Warm, Dry, No Rash Head: Normacephalic Eye(s): bilateral: Normal Inspection Extremity: Tenderness (mild tenderness to left heel ), No Calf Tenderness, Capillary Refill (less than 2 sec to left foot), No Deformity, No Swelling, No Other (erythema, open sores ) Extremity: Bilateral: Normal Color And Temperature, Normal ROM Pulses: Left Dorsalis Pedis: Normal, Right Dorsalis Pedis: Normal Neurological/Psych: Oriented x3, Normal Speech Gait: Other (with a limp) ED Course And Treatment O2 Sat by Pulse Oximetry: 100 (RA) Pulse Ox Interpretation: Normal Progress Note: XR of left foot ordered and reviewed - unremarkable. BRIDGER wrap applied by algorithm design engineer. Patient given orthopedic shoe. Patient given follow up instructions. Instructed to return to ER if symptoms worsen or new symptoms arise. Disposition - Disposition Forms: [employer] (Solomon Islander) - PA / RADIATOR REPAIRER / Resident Statement MD/DO has reviewed & agrees with the documentation as recorded. - Scribe Statement The provider has reviewed the documentation as recorded by the Scribe Reshma Ge All medical record entries made by the Priscillaibangelia were at my direction and personally dictated by me. I have reviewed the chart and agree that the record accurately reflects my personal performance of the history, physical exam, medical decision making, and the department course for this patient. I have also personally directed, reviewed, and agree with the discharge instructions and disposition.
--- NOTE | 2018-09-04 16:48 | C.PDOC ---
History Of Present Illness 28 year old female presents to the ED complaining of pain to left heel for 6 days. Denies any injuries or trauma. Reports it is very painful to put pressure and she has trouble walking. Denies any weakness or numbness. Denies taking any medications for the pain. Time Seen by Provider: 09/04/18 14:50 Chief Complaint (Nursing): Lower Extremity Problem/Injury History Per: Patient History/Exam Limitations: no limitations Onset/Duration Of Symptoms: Days (6) Current Symptoms Are (Timing): Still Present Past Medical History Reviewed: Historical Data, Nursing Documentation, Vital Signs Vital Signs: Last Vital Signs Temp 98 F 09/04/18 14:42 Pulse 64 09/04/18 14:42 Resp 20 09/04/18 14:42 BP 110/73 09/04/18 14:42 Pulse Ox 100 09/04/18 14:42 - Medical History PMH: Anxiety Denies: Depression Other Surgeries: hx of surgeries - [facility] Procedures INJECT/INFUSE ELECTROLYT (06/12/13) Family History: States: No Known Family Hx - Social History Hx Tobacco Use: No Hx Alcohol Use: No Hx Substance Use: No - Immunization History Hx Tetanus Toxoid Vaccination: No Hx Influenza Vaccination: Yes (06/2018) Hx Pneumococcal Vaccination: No Review Of Systems Except As Marked, All Systems Reviewed And Found Negative. Musculoskeletal: Positive for: Foot Pain (left heel pain) Neurological: Negative for: Weakness, Numbness Physical Exam - Physical Exam Additional Physical Exam Comments: Appears: Non-toxic, No Acute Distress Skin: Warm, Dry, No Rash Head: Normacephalic Eye(s): bilateral: Normal Inspection Extremity: Tenderness (mild tenderness to left heel ), No Calf Tenderness, Capillary Refill (less than 2 sec to left foot), No Deformity, No Swelling, No Other (erythema, open sores ) Extremity: Bilateral: Normal Color And Temperature, Normal ROM Pulses: Left Dorsalis Pedis: Normal, Right Dorsalis Pedis: Normal Neurological/Psych: Oriented x3, Normal Speech Gait: Other (with a limp) ED Course And Treatment O2 Sat by Pulse Oximetry: 100 (RA) Pulse Ox Interpretation: Normal - Other Rad Left foot XR X-Ray: Viewed By Me, Read By Radiologist Interpretation: Accession No. : [id number]. Patient Name / ID : GLEN WHITNEY W / [id number]. Exam Date : 09/04/2018 15:37:13 ( Approved ). Study Comment : Sex / Age : F / 28Y. Creator : Girish Su MD. Dictator : Girish Su MD. Chief Technical Officer : Nurse Research : Girish Su MD. Approver2 : Report Date : 09/04/2018 17:25:05. My Comment : . Date of service: 09/04/2018. PROCEDURE: Left Foot Radiographs. HISTORY: atraumatic pain. COMPARISON: None. FINDINGS: BONES: Normal. No fracture. JOINTS: Normal. SOFT TISSUES: Normal. OTHER FINDINGS: None. IMPRESSION: Normal left foot radiographs. Progress Note: XR of left foot ordered and reviewed - unremarkable. BRIDGER wrap applied by pediatric neuropsychologist. Patient given orthopedic shoe. Patient given follow up instructions. Instructed to return to ER if symptoms worsen or new symptoms arise Disposition - Disposition Referrals: Gina Jennings DPM [Staff Provider] - [facility] [Outside] Disposition: HOME/ ROUTINE Disposition Time: 16:33 Condition: STABLE Additional Instructions: Follow up with Intervention Nurse within 2-3 days. Return to ED if feel worse. Prescriptions: Ibuprofen [Motrin Tab] 600 mg PO Q8 #30 tab Instructions: Heel Pain (Caused by Plantar Fasciitis), Plantar Fasciitis Exercises Forms: [facility] [employer] (Latvian) - Clinical Impression Clinical Impression: Plantar fasciitis of left foot - PA / LEASE ANALYST / Resident Statement MD/DO has reviewed & agrees with the documentation as recorded. - Scribe Statement The provider has reviewed the documentation as recorded by the Scribe Reshma Ge All medical record entries made by the Scribe were at my direction and personally dictated by me. I have reviewed the chart and agree that the record accurately reflects my personal performance of the history, physical exam, medical decision making, and the department course for this patient. I have also personally directed, reviewed, and agree with the discharge instructions and disposition.
--- NOTE | 2018-09-04 17:28 | RAD ---
Date of service: 09/04/2018 PROCEDURE: Left Foot Radiographs. HISTORY: atraumatic pain COMPARISON: None. FINDINGS: BONES: Normal. No fracture. JOINTS: Normal. SOFT TISSUES: Normal. OTHER FINDINGS: None. IMPRESSION: Normal left foot radiographs.
== END 2018-09-04 17:27 | disposition home or self-care (01) ==
LOC: C.ER 14:40
DX: M72.2 Plantar fascial fibromatosis (principal)

== ENCOUNTER 2018-09-16 22:34 | Emergency (ER) | payer OTHER ==
[2018-09-16 22:35] VITALS: BMI 22.7
[2018-09-16 23:29] VITALS: BP 121/81; PULSE 74; RESP 18; TEMP 98.2; O2SAT 96
--- NOTE | 2018-09-17 00:21 | C.PDOC ---
History Of Present Illness 28 year old female presents to the ED c/o cough, congestion, body aches for the past 1 day. Patient states today he started feeling itchiness in his throat and having bilateral eye itchiness and redness. Patient denies fever, chills, headache, nausea, vomit, diarrhea, rash, recent travel, sick contacts. Time Seen by Provider: 09/16/18 23:44 Chief Complaint (Nursing): Flu-like Symptoms History Per: Patient History/Exam Limitations: no limitations Onset/Duration Of Symptoms: Days Current Symptoms Are (Timing): Still Present Location Of Pain: Throat, Sinus/es, Diffuse Myalgias Associated Symptoms: Sore Throat, Cough, Sinus Drainage, Myalgias, Nasal Congestion. denies: Fever Recent travel outside of the [place]: No Additional History Per: Patient Past Medical History Reviewed: Historical Data, Nursing Documentation, Vital Signs Vital Signs: Last Vital Signs Temp 98.2 F 09/16/18 23:19 Pulse 74 09/16/18 23:19 Resp 18 09/16/18 23:19 BP 121/81 09/16/18 23:19 Pulse Ox 96 09/16/18 23:19 - Medical History PMH: Anxiety Denies: Depression Surgical History: No Surg Hx - [facility] Procedures INJECT/INFUSE ELECTROLYT (06/12/13) Family History: States: Unknown Family Hx - Social History Hx Tobacco Use: No Hx Alcohol Use: No Hx Substance Use: No - Immunization History Hx Tetanus Toxoid Vaccination: No Hx Influenza Vaccination: Yes (06/2018) Hx Pneumococcal Vaccination: No Review Of Systems Constitutional: Positive for: Malaise. Negative for: Fever, Chills Eyes: Positive for: Redness ENT: Positive for: Nose Discharge, Nose Congestion, Throat Pain Respiratory: Positive for: Cough. Negative for: Shortness of Breath Gastrointestinal: Negative for: Nausea, Vomiting, Abdominal Pain Skin: Negative for: Rash Neurological: Negative for: Weakness, Numbness, Headache, Dizziness Physical Exam - Physical Exam Appears: Non-toxic, No Acute Distress Skin: Normal Color, Warm, Dry Head: Atraumatic, Normacephalic Eye(s): bilateral: Normal Inspection, Other (ciliary injection) Ear(s): Bilateral: Normal Oral Mucosa: Moist Throat: Normal, No Erythema, No Exudate Neck: Normal ROM, Supple Chest: Symmetrical Cardiovascular: Rhythm Regular Respiratory: Normal Breath Sounds, No Rales, No Rhonchi, No Wheezing Gastrointestinal/Abdominal: Soft, No Tenderness, No Guarding, No Rebound Extremity: Normal ROM, No Tenderness, No Swelling Neurological/Psych: Oriented x3, Normal Speech, Normal Cognition Gait: Steady ED Course And Treatment O2 Sat by Pulse Oximetry: 96 (ON RA) Pulse Ox Interpretation: Normal Progress Note: Patient was advised to take some OTC medications. Return precautions were discussed and patient was advised to follow up with PMD for further evaluation. Disposition Counseled Patient/Family Regarding: Diagnosis, Need For Followup - Disposition Referrals: Kacie Rodas MD [Staff Provider] - Disposition: HOME/ ROUTINE Disposition Time: 00:19 Condition: STABLE Additional Instructions: Please follow up with PMD Increase fluids Take medications as directed Return to ER if worse Prescriptions: Benzonatate [Tessalon Perles] 200 mg PO TID #14 sgl Cetirizine HCl [Zyrtec] 10 mg PO DAILY #14 capsule Instructions: Viral Upper Respiratory Infection, Adult (DC) Forms: [employer] (Greek), [employer] (South Korean) - Clinical Impression Clinical Impression: Influenza-like illness - PA / ALUMINUM SIDING MECHANIC / Resident Statement MD/DO has reviewed & agrees with the documentation as recorded. - Scribe Statement The provider has reviewed the documentation as recorded by the Scribe Alberto Cruz All medical record entries made by the Scribe were at my direction and personally dictated by me. I have reviewed the chart and agree that the record accurately reflects my personal performance of the history, physical exam, medical decision making, and the department course for this patient. I have also personally directed, reviewed, and agree with the discharge instructions and disposition.
== END 2018-09-17 00:31 | disposition home or self-care (01) ==
LOC: C.ER 22:34
DX: J11.1 Influenza due to unidentified influenza virus with other respiratory manifestations (principal)

== ENCOUNTER 2018-11-18 21:46 | Emergency (ER) | payer OTHER | END 2018-11-18 23:05 | disposition home or self-care (01) | LOC: C.ER 21:46 ==